=== PATIENT | female | born 1940 | race Two or more races ===

== ENCOUNTER 2019-09-04 16:55 | Inpatient (IN) | payer MEDICARE ==
[~2019-09-04] VITALS: Ht 167.6 cm; Wt 72.9 kg
--- NOTE | 2019-09-04 17:08 | NUR ---
PT CHANGING INTO GOWN. FAMILY BEDSIDE.
--- NOTE | 2019-09-04 17:15 | NUR ---
78 Y/O FEMALE PRESENTS TO ED FROM WITH C/O LEFT FEMUR FX. PT HAD A TWISTING MGLF, BEEN WALKING FOR THE LAST TWO DAYS. DAUGHTER BEDSIDE. NO ACUTE DISTRESS NOTED. PT PLACED ON CONT PULSE OX,NIBP. NO C/O BACK PROBLEMS.
[2019-09-04] MEDS ORDERED: SODIUM CHLORIDE FLUSH 10ML SYR IVF ONE (17:30)
[2019-09-04 18:01] LABS: BASOPHILS # (AUTO) 0.04 x10^3/uL (0-0.1); BASOPHILS % (AUTO) 1 % (0-1); EOSINOPHILS # (AUTO) 0.09 x10^3/uL (0-0.4); EOSINOPHILS % (AUTO) 1 % (1-7); LYMPHOCYTES # (AUTO) 1.62 x10^3/uL (1-3.4); LYMPHOCYTES % (AUTO) 19 % (22-44); MD NO; MEAN CORPUSCULAR HEMOGLOBIN 30.8 pg (27.0-34.8); MEAN CORPUSCULAR HGB CONC 33.1 g/dL (32.4-35.8); MEAN CORPUSCULAR VOLUME 92.8 fL (80-100); MEAN PLATELET VOLUME 7.4 fL (7.4-10.4); MONOCYTES # (AUTO) 0.57 x10^3/uL (0.2-0.8); MONOCYTES % (AUTO) 7 % (2-9); NEUTROPHILS # (AUTO) 6.29 x10^3/uL (1.8-6.8); NEUTROPHILS % (AUTO) 73 % (42-75); PLATELET COUNT 225 x10^3/uL (130-400); RED CELL DISTRIBUTION WIDTH 13.8 % (9.6-15.2)
[2019-09-04 18:06] LABS: ALBUMIN 3.5 g/dL (3.4-5.0); ANION GAP 7 mmol/L (5-15); CALCIUM 8.6 mg/dL (8.5-10.1); CHLORIDE 107 mmol/L (98-107); CREATININE 0.82 mg/dL (0.55-1.02)
[2019-09-04 18:22] LABS: INTERNATIONAL NORMALIZED RATIO 1.23 (0.93-1.1); PROTHROMBIN TIME 12.8 Seconds (9.6-11.5)
--- NOTE | 2019-09-04 18:29 | NUR ---
PT RESTING ON GURNEY. DAUGHTER BEDSIDE. NO ACUTE DISTRESS NOTED. PT DECLINES PAIN MEDICATION AT THIS TIME.
--- NOTE | 2019-09-04 19:01 | NUR ---
PT ABLE TO TRANSFER TO BEDSIDE COMMODE WITH STAND BY ASSISTANCE. NO ACUTE DISTRESS NOTED.
--- NOTE | 2019-09-04 19:13 | NUR ---
BEDSIDE REPORT TO LIAM RAMACHANDRAN.
[2019-09-04] MEDS ORDERED: BISACODYL 10 MG SUPP PR PRN (20:00)
[2019-09-04] MEDS ORDERED: MORPHINE SULFATE 4 MG/ML, 1ML IVPush PRN (20:00)
[2019-09-04] MEDS ORDERED: ONDANSETRON ODT 4 MG PO PRN (20:00)
[2019-09-04] MEDS ORDERED: POLYETHYLENE GLYCOL 17 GM PACKET PO PRN (20:00)
--- NOTE | 2019-09-04 20:01 | NUR ---
REPORT TO DARLEEN. [facility] AT BEDSIDE. PT GIVEN RAJANI.
[2019-09-04 20:31] VITALS: BP 153/76
[2019-09-04 20:35] VITALS: BP 153/76
[2019-09-04] MEDS: SODIUM CHLORIDE FLUSH 10ML SYR IVF SCH (21:00)
[2019-09-04] MEDS: ACETAMINOPHEN 325 MG TABLET PO PRN (21:56)
[2019-09-05 00:03] VITALS: BP 144/71
[2019-09-05 05:22] LABS: MICROSCOPIC AUTO
[2019-09-05 05:23] LABS: CULTURE INDICATED? YES
[2019-09-05 05:31] LABS: BASOPHILS # (AUTO) 0.05 x10^3/uL (0-0.1); BASOPHILS % (AUTO) 1 % (0-1); EOSINOPHILS # (AUTO) 0.08 x10^3/uL (0-0.4); EOSINOPHILS % (AUTO) 1 % (1-7); LYMPHOCYTES # (AUTO) 1.75 x10^3/uL (1-3.4); LYMPHOCYTES % (AUTO) 28 % (22-44); MD NO; MEAN CORPUSCULAR HEMOGLOBIN 30.6 pg (27.0-34.8); MEAN CORPUSCULAR HGB CONC 32.8 g/dL (32.4-35.8); MEAN CORPUSCULAR VOLUME 93.2 fL (80-100); MEAN PLATELET VOLUME 7.6 fL (7.4-10.4); MONOCYTES # (AUTO) 0.48 x10^3/uL (0.2-0.8); MONOCYTES % (AUTO) 8 % (2-9); NEUTROPHILS # (AUTO) 3.84 x10^3/uL (1.8-6.8); NEUTROPHILS % (AUTO) 62 % (42-75); PLATELET COUNT 224 x10^3/uL (130-400); RED BLOOD COUNT 4.21 x10^6/uL (3.82-5.3); RED CELL DISTRIBUTION WIDTH 13.7 % (9.6-15.2)
[2019-09-05 05:33] LABS: ALBUMIN 3.1 g/dL (3.4-5.0); ANION GAP 6 mmol/L (5-15); CALCIUM 8.4 mg/dL (8.5-10.1); CHLORIDE 109 mmol/L (98-107)
[2019-09-05 05:37] LABS: ALANINE AMINOTRANSFERASE 11 U/L (12-78); ALKALINE PHOSPHATASE 52 U/L (45-117); BILIRUBIN,TOTAL 0.6 mg/dL (0.2-1.0); CREATININE 0.78 mg/dL (0.55-1.02); TOTAL PROTEIN 6.4 g/dL (6.4-8.2)
[2019-09-05] MEDS ORDERED: FENTANYL PF 250 MCG/5ML ONE (07:29)
[2019-09-05] MEDS ORDERED: CEFAZOLIN 1,000 MG ONE (07:58)
[2019-09-05] MEDS ORDERED: ONDANSETRON 2MG/ML, 2ML ONE (07:58)
[2019-09-05] MEDS ORDERED: NEOSTIGMINE 1 MG/ML, 10ML ONE (07:58)
[2019-09-05] MEDS ORDERED: DEXAMETHASONE 4 MG/ML, 1ML ONE (07:58)
[2019-09-05] MEDS ORDERED: SUCCINYLCHOLINE 20 MG/ML, 10ML ONE (07:58)
[2019-09-05] MEDS ORDERED: ROCURONIUM 10MG/ML,5ML ONE (07:58)
[2019-09-05] MEDS ORDERED: GLYCOPYRROLATE 0.2MG/1ML, 5ML ONE (07:58)
[2019-09-05] MEDS ORDERED: PROPOFOL 10 MG/ML, 20ML ONE (07:58)
[2019-09-05] MEDS ORDERED: SUGAMMADEX 200 MG/2 ML IVPush ONE (07:58)
[2019-09-05] MEDS ORDERED: OXYcodone 5 MG/5 ML ORAL.SOL UDC PO PRN (08:00)
[2019-09-05] MEDS ORDERED: LORazepam 2 MG/ML, 1ML IVPush PRN (08:00)
[2019-09-05] MEDS ORDERED: PROMETHAZINE 25 MG/ML, 1ML IV PRN (08:00)
[2019-09-05] MEDS ORDERED: ONDANSETRON 2MG/ML, 2ML IV PRN (08:00)
[2019-09-05] MEDS ORDERED: FENTANYL PF 100 MCG/2ML IV PRN (08:00)
[2019-09-05] MEDS ORDERED: ONDANSETRON ODT 8 MG PO PRN (08:00)
[2019-09-05] MEDS ORDERED: ACETAMINOPHEN 325 MG TABLET PO PRN ×2 (08:00→16:30)
[2019-09-05] MEDS ORDERED: HYDROmorphone 2 MG/ML, 1ML IVPush PRN (08:00)
[2019-09-05] MEDS ORDERED: ACETAMINOPHEN 650 MG/20.3 ML UDC ONE (08:29)
[2019-09-05] MEDS: ACETAMINOPHEN 325 MG TABLET PO PRN (08:32)
[2019-09-05] MEDS ORDERED: FENTANYL PF 100 MCG/2ML ONE (08:49)
[2019-09-05] MEDS ORDERED: OXYcodone 5 MG/5 ML ORAL.SOL UDC ONE (08:50)
[2019-09-05 09:15] VITALS: BP 122/66
[2019-09-05] MEDS ORDERED: OXYcodone IR 5MG TABLET PO PRN (09:30)
[2019-09-05] MEDS: SODIUM CHLORIDE FLUSH 10ML SYR IVF SCH ×2 (09:50→20:51)
[2019-09-05] MEDS ORDERED: CEFTRIAXONE PMX 1GM/50ML 50 ML IV SCH ×2 (10:00→10:30)
[2019-09-05] MEDS: SENNA/DOCUSATE TABLET PO SCH (10:07)
[2019-09-05] MEDS: KETOROLAC 30 MG/1 ML IV SCH ×2 (10:08→17:51)
[2019-09-05 11:03] LABS: INTERNATIONAL NORMALIZED RATIO 1.4 (0.93-1.1); PROTHROMBIN TIME 14.5 Seconds (9.6-11.5)
[2019-09-05] MEDS: CEFTRIAXONE PMX 1GM/50ML 50 ML IV SCH (11:25)
[2019-09-05 13:33] VITALS: BP 113/72
[2019-09-05] MEDS ORDERED: CEFAZOLIN PMX 1GM/50ML 50 ML IVPB SCH (15:41)
[2019-09-05] MEDS ORDERED: WARFARIN 5 MG TABLET PO-COUM ONE (18:00)
[2019-09-05 19:27] VITALS: BP 102/62
[2019-09-06] MEDS: KETOROLAC 30 MG/1 ML IV SCH (01:24)
[2019-09-06 01:40] VITALS: BP 107/69
[2019-09-06] MEDS ORDERED: OXYC5CAP2 PO (02:16)
[2019-09-06 04:57] LABS: ALBUMIN 2.8 g/dL (3.4-5.0); ANION GAP 4 mmol/L (5-15); CALCIUM 8.4 mg/dL (8.5-10.1); CHLORIDE 109 mmol/L (98-107); CREATININE 0.81 mg/dL (0.55-1.02)
[2019-09-06 05:01] LABS: BASOPHILS # (AUTO) 0.08 x10^3/uL (0-0.1); BASOPHILS % (AUTO) 1 % (0-1); EOSINOPHILS # (AUTO) 0.08 x10^3/uL (0-0.4); EOSINOPHILS % (AUTO) 1 % (1-7); LYMPHOCYTES % (AUTO) 13 % (22-44); MD NO; MEAN CORPUSCULAR HEMOGLOBIN 30.8 pg (27.0-34.8); MEAN CORPUSCULAR HGB CONC 33.3 g/dL (32.4-35.8); MEAN CORPUSCULAR VOLUME 92.6 fL (80-100); MEAN PLATELET VOLUME 7.6 fL (7.4-10.4); MONOCYTES # (AUTO) 0.61 x10^3/uL (0.2-0.8); MONOCYTES % (AUTO) 6 % (2-9); NEUTROPHILS # (AUTO) 8.15 x10^3/uL (1.8-6.8); NEUTROPHILS % (AUTO) 80 % (42-75); PLATELET COUNT 222 x10^3/uL (130-400); RED BLOOD COUNT 3.74 x10^6/uL (3.82-5.3); RED CELL DISTRIBUTION WIDTH 13.3 % (9.6-15.2)
[2019-09-06] MEDS: SENNA/DOCUSATE TABLET PO SCH (08:16)
[2019-09-06] MEDS: SODIUM CHLORIDE FLUSH 10ML SYR IVF SCH (08:17)
[2019-09-06 08:50] VITALS: BP 113/69
[2019-09-06] MEDS: CEFTRIAXONE PMX 1GM/50ML 50 ML IV SCH (09:57)
[2019-09-06 10:53] VITALS: BP 106/70
== END 2019-09-06 11:16 | disposition home or self-care (01) | DRG 481 ==
LOC: ED 19:22 → EDIP 19:48 → 4NE 20:15
PROVIDERS: ADMIT Family Medicine; ATTEND Family Medicine
PROC: 0QS734Z Reposition Left Upper Femur with Internal Fixation Device, Percutaneous Approach (ICD-10-PCS; principal; 2019-09-05 07:30)
DX: S72.002A Fracture of unspecified part of neck of left femur, initial encounter for closed fracture (principal); D68.59 Other primary thrombophilia; W01.0XXA Fall on same level from slipping, tripping and stumbling without subsequent striking against object, initial encounter; Z79.01 Long term (current) use of anticoagulants; Z85.3 Personal history of malignant neoplasm of breast; Z86.718 Personal history of other venous thrombosis and embolism; Z90.13 Acquired absence of bilateral breasts and nipples; Z90.710 Acquired absence of both cervix and uterus; Z92.21 Personal history of antineoplastic chemotherapy; Z90.49 Acquired absence of other specified parts of digestive tract; Z79.899 Other long term (current) drug therapy; Y93.89 Activity, other specified; Y92.89 Other specified places as the place of occurrence of the external cause; Y99.8 Other external cause status
CPT/HCPCS: 36415; 71045; 76000; 80048; 80053; 80069; 81001; 82040; 83735; 85025; 85610; 87077; 87086; 87186; 93005; 99285; C1713; G0378; J0690; J0696; J1100; J1885; J2405; J2704; J2710; J3010; J0330

== ENCOUNTER 2020-06-29 10:42 | Emergency (ER) | payer MEDICARE ==
[~2020-06-29] VITALS: Ht 167.6 cm; Wt 65.6 kg
[~2020-06-29 10:42] MED LIST: OXYC5CAP2 PO
[2020-06-29 10:53] VITALS: BP 129/73
--- NOTE | 2020-06-29 11:02 | NUR ---
PT CAME IN CO OF RIGHT CALF SWELLING AND PAIN. HX OF DVTS. SUPPOSED TO BE TAKING COUMADIN AND FOLLOWING UP WITH COUMADIN CLINIC. HOWEVER, SHE DOESNT FOLLOW UP WITH THE CLINIC AND DOESNT TAKE COUMADIN REGULARLY. SHE TOOK 2 DOSES OVER THE PAST COUPLE OF DAYS. PT IS RESTING IN [facility]. LUCIE DAVIES IS BEDSIDE.
[2020-06-29] MEDS ORDERED: HYDROcodone/APAP 5/325 TABLET ONE (11:23)
[2020-06-29 11:37] LABS: INTERNATIONAL NORMALIZED RATIO 1.29 (0.93-1.1); PROTHROMBIN TIME 13.3 Seconds (9.6-11.5)
[2020-06-29] MEDS ORDERED: HYDROcodone/APAP 5/325 TABLET PO ONE (12:00)
== END 2020-06-29 13:45 | disposition home or self-care (01) ==
LOC: ED 12:57
DX: M79.662 Pain in left lower leg (principal); Z86.718 Personal history of other venous thrombosis and embolism
CPT/HCPCS: 36415; 85610; 99284